=== PATIENT | female | born 1960 | race Asian ===

== ENCOUNTER 2018-01-14 17:21 | Emergency (ER) | payer OTHER ==
[~2018-01-14] VITALS: Ht 152.4 cm; Wt 55.8 kg
[2018-01-14] MEDS ORDERED: CLONIDINE HCL 0.1 MG TAB PO ONE (18:15)
--- NOTE | 2018-01-14 19:31 | Diagnostic Imaging Report ---
Examination: CT head without contrast Clinical Indication: Headache for 3 days. Technique: Transaxial noncontrast images from the skull base through the vertex were obtained. Sagittal and coronal reformatted images were done. Dose modulation, iterative reconstruction, and/or weight based adjustment of the mA/kV was utilized to reduce the radiation dose to as low as reasonably achievable. Comparison: None. Findings: Scalp: No abnormalities. Bones: Intact. No fractures. No blastic or lytic lesions. Brain sulci: Appropriate for patient's age. Ventricles: Normal in size and configuration. No hydrocephalus. Extra-axial space: No abnormalities. Parenchyma: No abnormal densities. No masses, hemorrhage, or acute or chronic cortical based vascular insults. Suprasellar region: No abnormalities. Craniocervical junction: The foramen magnum is patent. No Chiari one malformation. Incidental findings: Atherosclerotic calcification of the cavernous and supraclinoid internal carotid and V4 segments of the bilateral vertebral arteries. Impression: No acute intracranial abnormality. Signed by: Dr. Yuko Culp M.D. on 01/14/2018 7:28 PM
[2018-01-14] MEDS ORDERED: CLONIDINE HCL 0.1 MG TAB ONE (19:32)
== END 2018-01-14 21:12 | disposition home or self-care (01) ==
LOC: ER 17:21
DX: R51 Headache (principal); I10 Essential (primary) hypertension
CPT/HCPCS: 70450; 99283